=== PATIENT | female | born 1975 | race Caucasian/White ===

== ENCOUNTER 2022-12-17 13:18 | Outpatient (CLI) | payer MEDICAID, OTHER, SELFPAY | END 2022-12-17 13:19 | disposition home or self-care (01) | LOC: AMB 01-03 06:09 | PROVIDERS: Visit Provider Family Medicine | DX: R42 Dizziness and giddiness (principal) | CPT/HCPCS: A0998 ==

== ENCOUNTER 2022-12-19 19:33 | Day surgery (SDC) | payer MEDICAID, SELFPAY ==
[2022-12-19 19:42] VITALS: BP 141/84; PULSE 73; RESP 18; TEMP 36.9; O2SAT 97
--- NOTE | 2022-12-19 20:34 | ED_ITS ---
HPI - Female Genitourinary General Time Seen by Provider: 20:35 Date Seen: 12/19/22 Chief complaint: Vaginal Bleeding Stated complaint: Shortness of breath, Heavy vaginal bleeding Time Seen by Provider: 12/19/22 20:32 Source: patient, RN notes reviewed and old records reviewed Mode of arrival: ambulatory Limitations: no limitations History of Present Illness HPI Narrative: patient is a very pleasant 47-year-old female with history of IUD placement 14 years ago, otherwise healthy who comes to the emergency room for evaluation regarding low hemoglobin. Patient notes that for 9 months every time she gets her. It has become heavier and heavier and this particular time she is soaking a pad every hour. Patient states that normally her periods are 3-4 days but now they are exceeding 5 days. Today is day 4 of this particular month and she notes that she is experiencing clots and she has never noticed that before. Two days ago she had persistent bleeding while in the bathroom and when she got up she got lightheaded and fell to the floor and was short of breath. Her daughter called 911 but by the time they arrived she felt like she was back to normal and they said her blood pressure was okay. Today she went to urgent care and they said she needed to come to the emergency room because her hemoglobin was 6.0 and she would needed blood transfusion. Patient notes that she also felt like there was something in her vagina and felt that there was a bump and she is very worried about that like no dysuria no fever although she does occasionally feel hot. She is not short of breath today nor she experiencing any chest pain. We are conducting are examination with the assistance with souvenir and novelty maker Related Data Home Medications Medication Instructions Recorded Confirmed No Known Home Medications 12/19/22 12/19/22 Allergies Allergy/AdvReac Type Severity Reaction Status Date / Time No Known Drug Allergies Allergy Verified 12/19/22 19:42 Review of Systems Status of ROS: Reports: 10 or more systems reviewed and unremarkable except as noted in History and below Const: Denies: fever or chills Eyes: Denies: change in vision ENMT: Denies: neck pain or throat swelling Cardio: Reports: lightheadedness; Denies: chest pain, palpitations, swelling of feet/ankles or shortness of breath with exertion Resp: Denies: shortness of breath or cough GI: Denies: abdominal pain, nausea, vomiting or diarrhea : Reports: vaginal bleeding and change in menstrual flow; Denies: painful urination Musculo: Denies: neck pain Neuro: Denies: headache Psych: Reports: anxiety Allergy/Immuno: Denies: throat swelling [facility] Social History Smoking Status: Never smoker Do you use any of these nicotine containing products: None Second hand tobacco smoke exposure: No How often do you have a drink containing alcohol: never AUDIT-C Alcohol total score: 0 Non-prescribed substance use: denies use Exam Narrative: Exam Narrative: patient is alert and oriented. She is very tearful and scared. Eyes are clear. Examination of the conjunctiva as shows no pallor. Face is symmetrical. Speech is normal. Heart with regular rate and rhythm and lungs are clear. Abdomen soft nontender. Moving all extremities. External genitalia normal. Insertion of speculum shows small amount of clot and dark maroon blood in the vaginal vault. I do visualize the cervix but cannot identify normal anatomy. There appears to be soft tissue of the same color coming through the bottom of the vagina. Const: Vital Signs, click to edit/add: Vital Signs - 24 hr 12/19/22 19:42 Temperature 98.5 F Pulse Rate [Pulse Oximeter] 73 Respiratory Rate 18 Blood Pressure [Ri ght Upper Arm] 141/84 H Pulse Oximetry 97 Oxygen Delivery Me thod Room Air Documenting provider has reviewed patient's vital signs: yes Course Course Hospital Course: at this time differential diagnosis includes functional uterine bleeding, fibroids, mass, . Will place an IV, obtain type and cross, pelvic ultrasound, labs to include CBC, comprehensive, INR, hCG. Ultrasound is here at this time and thus will conduct my pelvic exam once patient returns. Reevaluation(s) Reevaluation #1: Patient noted to have a hemoglobin of 6.7. INR is normal. Fortunately ultrasound does show a uterine growth extending through the cervix. I did consult with Dr.Dohm Robledo OBGYN. At this time this growth is suspicious for cancer and I do conveyed this to the patient. Did explain that we will admit overnight with tissue sampling plan for tomorrow morning. Vital Signs Vital signs: Initial Vital Signs Temperature 98.5 F 12/19/22 19:42 Temperature Source Temporal Artery Scan 12/19/22 19:42 Pulse Rate 73 12/19/22 19:42 Pulse Rhythm Regular 12/19/22 19:42 Respiratory Rate 18 12/19/22 19:42 Blood Pressure 141/84 H 12/19/22 19:42 Blood Pressure Mean 103 12/19/22 19:42 Blood Pressure Position Sitting 12/19/22 19:42 Pulse Oximetry 97 12/19/22 19:42 Oxygen Delivery Method Room Air 12/19/22 19:42 Vital Signs Temperature 98.5 F 12/19/22 19:42 Pulse Rate 73 12/19/22 19:42 Respiratory Rate 18 12/19/22 19:42 Blood Pressure 141/84 H 12/19/22 19:42 Pulse Oximetry 97 12/19/22 19:42 Oxygen Delivery Method Room Air 12/19/22 19:42 Temperature 98.5 F 12/19/22 19:42 Pulse Rate 73 12/19/22 19:42 Respiratory Rate 18 12/19/22 19:42 Blood Pressure 141/84 H 12/19/22 19:42 Pulse Oximetry 97 12/19/22 19:42 Oxygen Delivery Method Room Air 12/19/22 19:42 MDM - Female Genitourinary MDM Narrative Medical decision making narrative: 1. Uterine mass with dysfunctional uterine bleeding-at this time patient will be admitted with nursing surgical services director consult by Dr. Lou tomorrow morning. Plan on OR tissue sampling for diagnosis. NPO after midnight. 2. Anemia with a hemoglobin of 6.7 -2 units blood to be transfused. Follow-up hemoglobin tomorrow morning. Provera 10 mg p.o. q.8 hours. 3. Disposition -admit under the care of Dr. Josselin Robledo. Dr. Lou to see tomorrow morning. Written orders for NPO status, Provera, hemoglobin in a.m. as well as transfusion done. Medical Records Attestation: I reviewed the patient's medical records. Lab Data Attestation: I reviewed the patient's lab results. Labs: Lab Results 12/19/22 12/19/22 12/19/22 Range/Units 21:15 21:57 23:25 WBC 8.47 (4.50-11.00) K/uL RBC 3.12 L (4.00-5.20) m/uL Hgb 6.7 L* (12.0-16.0) gm/dL Hct 22.8 L (33.0-51.0) % MCV 73 L (80-100) fL MCH 22 L (26-34) pg MCHC 29 L (32-36) gm/dL RDW Coeff of Aidee 17.4 H (11.5-15.5) % Plt Count 445 H (140-440) K/uL Neut % (Auto) 60.5 (42.0-72.0) % Lymph % (Auto) 28.8 (20-44) % [place] % (Auto) 7.4 (0.0-11.0) % Eos % (Auto) 2.6 (0.0-7.0) % Baso % (Auto) 0.6 (0.0-3.0) % Neut # (Auto) 5.12 (1.7-7.0) K/uL Lymph # (Auto) 2.44 (0.90-2.90) K/uL [place] # (Auto) 0.60 (0.00-0.90) K/UL Eos # (Auto) 0.22 (0.00-0.50) K/uL Baso # (Auto) 0.05 (0.00-0.30) K/uL Diff Slide Review Acceptable Review (Acceptable) INR 1.00 (0.91-1.10) Sodium 137 (135-149) mmol/L Potassium 3.6 (3.6-5.1) mmol/L Chloride 106 (96-114) mmol/L Carbon Dioxide 25 (20-32) mmol/L BUN 8 (5-24) mg/dL Creatinine 0.6 (0.5-1.5) mg/dL Estimated GFR 111 ml/min Glucose 110 (60-115) mg/dL Calcium 8.7 (8.4-10.6) mg/dL Total Bilirubin 0.2 (0.1-1.5) mg/dL AST 21 (12-35) U/L ALT 18 (4-35) U/L Alkaline Phosphatase 78 (40-150) U/L Total Protein 7.8 (6.0-8.3) g/dL Albumin 4.0 (3.3-5.0) g/dL HCG, Qual Negative (Negative) Urine Color Yellow (Yellow) Urine Appearance Clear (Clear) Urine pH 6.0 (5.0-8.5) Ur Specific [place] >= 1.030 (1.000-1.030) Urine Protein 3+ A (Negative) Urine Glucose (UA) Negative (Negative) Urine Ketones Negative (Negative) Urine Blood 2+ A (Negative) Urine Nitrite Negative (Negative) Urine Bilirubin Negative (Negative) Urine Urobilinogen 0.2 (0.2-1.0) Ur Leukocyte Esterase 1+ A (Negative) Urine RBC >100 A (0-2) Urine WBC 25-50 A (0-5) Ur Squamous Epith Cells None (None-Few) Urine Bacteria Moderate A (None) SARS-CoV-2 (PCR) Negative SARS-CoV-2 (Negative) Blood Type O Positive Antibody Screen NEGATIVE Crossmatch (AHG) See Detail Imaging Data pelvic ultrasound: Attestation: I have reviewed the pertinent imaging results. Radiologist's impression: Uterus: 9.0 x 4.7 x 4.6 cm. Normal echotexture of the myometrium. No masses.? Endometrium: Endometrial thickness measures 21 mm. There is a heterogeneous solid mass in the endometrial cavity which extends into the cervix measuring approximately 5.6 x 3.4 x 4.1 cm. Right ovary measures 2.9 x 1.0 x 1.7 cm and left ovary measures 2.7 x 1.5 x 2.4 cm. No ovarian or adnexal masses. Normal arterial and venous blood flow is demonstrated in both ovaries. Cul-de-sac: No significant free fluid.? ? IMPRESSION: Large heterogeneous solid mass in the endometrial cavity extending into the cervix. Recommend correlation with tissue sampling. Abdominal x-ray: Attestation: I have reviewed the pertinent imaging results. My impression: Y shaped IUD noted on x-ray. Radiologist's impression: Bowel: The bowel gas pattern is normal without evidence of bowel obstruction. Soft tissue: No evidence of pneumoperitoneum present. No suspicious calcifications noted. Surgical clips are noted in the right upper quadrant from prior cholecystectomy. An IUD is noted in the midline pelvis and may be oriented in the sagittal plane. Bone: Unremarkable for age. IMPRESSION: 1. An IUD is noted in the midline pelvis and may be oriented in the sagittal plane. Discharge Plan Discharge Clinical Impression: Vaginal bleeding, Mass of uterus Patient Disposition: Admitted As Inpatient Condition: Improved
--- NOTE | 2022-12-19 20:35 | CRLHL7_ITS ---
For Patients: As a result of the Century Cures Act, medical imaging exams and procedure reports are released immediately into your electronic medical record. You may view this report before your referring provider. If you have questions, please contact your health care provider. INDICATION: Vaginal bleeding. TECHNIQUE: Ultrasound pelvis transvaginal. Real-time sonographic images with spectral and color Doppler imaging of the ovaries were obtained. COMPARISON: None. FINDINGS: Uterus: 9.0 x 4.7 x 4.6 cm. Normal echotexture of the myometrium. No masses. Endometrium: Endometrial thickness measures 21 mm. There is a heterogeneous solid mass in the endometrial cavity which extends into the cervix measuring approximately 5.6 x 3.4 x 4.1 cm. Right ovary measures 2.9 x 1.0 x 1.7 cm and left ovary measures 2.7 x 1.5 x 2.4 cm. No ovarian or adnexal masses. Normal arterial and venous blood flow is demonstrated in both ovaries. Cul-de-sac: No significant free fluid. IMPRESSION: Large heterogeneous solid mass in the endometrial cavity extending into the cervix. Recommend correlation with tissue sampling. Dictated by Jhony Jorge MD @ 12/19/2022 10:00:17 PM (Electronically Signed)
[2022-12-19 21:39] LABS: Appearance Urine Clear (Clear); Bilirubin Urine Negative (Negative); Blood Urine 2+ (Negative); Glucose Urine Negative (Negative); Ketones Urine Negative (Negative); Leukocyte Esterase Urine 1+ (Negative); Nitrite Urine Negative (Negative); Protein Urine 3+ (Negative); Specific Gravity Urine >= 1.030 (1.000-1.030); Urobilinogen Urine 0.2 (0.2-1.0)
[2022-12-19 21:44] LABS: RBC Urine >100 (0-2); WBC Urine 25-50 (0-5)
[2022-12-19 21:45] LABS: Bacteria Urine Moderate
[2022-12-19 21:46] LABS: Color Urine Yellow (Yellow)
[2022-12-19 22:05] LABS: Basophils Absolute Auto 0.05 K/uL (0.00-0.30); Basophils Percent Auto 0.6 % (0.0-3.0); Eosinophils Absolute Auto 0.22 K/uL (0.00-0.50); Eosinophils Percent Auto 2.6 % (0.0-7.0); Hematocrit 22.8 % (33.0-51.0); Immature Granulocytes Abs Auto 0.01 K/uL (0.00-0.30); Immature Granulocytes Pct Auto 0.1 %; Lymphocytes Absolute Auto 2.44 K/uL (0.90-2.90); Lymphocytes Percent Auto 28.8 % (20-44); Mean Corpuscular HGB Conc 29 gm/dL (32-36); Mean Corpuscular Hemoglobin 22 pg (26-34); Mean Corpuscular Volume 73 fL (80-100); Monocytes Percent Auto 7.4 % (0.0-11.0); Neutrophils Absolute Auto 5.12 K/uL (1.7-7.0); Neutrophils Percent Auto 60.5 % (42.0-72.0); Platelet Count* 445 K/uL (140-440); RDW Coefficient of Variation % 17.4 % (11.5-15.5); Red Blood Count 3.12 m/uL (4.00-5.20); White Blood Count* 8.47 K/uL (4.50-11.00)
--- NOTE | 2022-12-19 22:15 | ED.NURSE ---
MD in room to perform pelvic examination. Griddle Attendant at bedside.
--- NOTE | 2022-12-19 22:17 | ED.NURSE ---
hgb 6.7 notifed
[2022-12-19 22:18] LABS: Hemoglobin* 6.7 gm/dL (12.0-16.0); Slide Review Reflex Yes
[2022-12-19 22:31] LABS: Chloride* 106 mmol/L (96-114); Potassium* 3.6 mmol/L (3.6-5.1); Sodium* 137 mmol/L (135-149)
[2022-12-19 22:33] LABS: Bilirubin Total* 0.2 mg/dL (0.1-1.5); Creatinine* 0.6 mg/dL (0.5-1.5); Estimated Glomerular Filt Rate 111 ml/min; Prothrombin Time 13.8 Seconds
[2022-12-19 22:34] LABS: Alanine Aminotransferase* 18 U/L (4-35); Alkaline Phosphatase* 78 U/L (40-150); Aspartate Amino Transferase* 21 U/L (12-35); Blood Urea Nitrogen* 8 mg/dL (5-24); Calcium* 8.7 mg/dL (8.4-10.6); Carbon Dioxide* 25 mmol/L (20-32); Glucose* 110 mg/dL (60-115); Total Protein* 7.8 g/dL (6.0-8.3)
[2022-12-19 22:55] LABS: HCG Qualitative Serum* Negative (Negative)
[2022-12-19 23:10] VITALS: BP 114/74; PULSE 81; RESP 14; O2SAT 99
--- NOTE | 2022-12-19 23:10 | CRLHL7_ITS ---
For Patients: As a result of the Century Cures Act, medical imaging exams and procedure reports are released immediately into your electronic medical record. You may view this report before your referring provider. If you have questions, please contact your health care provider. INDICATION: IUD placement, IUD check TECHNIQUE: Abdomen/Pelvis radiograph 2 views COMPARISON: None FINDINGS: Bowel: The bowel gas pattern is normal without evidence of bowel obstruction. Soft tissue: No evidence of pneumoperitoneum present. No suspicious calcifications noted. Surgical clips are noted in the right upper quadrant from prior cholecystectomy. An IUD is noted in the midline pelvis and may be oriented in the sagittal plane. Bone: Unremarkable for age. IMPRESSION: 1. An IUD is noted in the midline pelvis and may be oriented in the sagittal plane. Dictated by: Adin Soliman MD @ 12/19/2022 23:32:22 (Electronically Signed)
[2022-12-19] MEDS: MEDROXYPROGESTERONE 5 MG TABLET 10 MG PO (23:29)
[2022-12-20] VITALS (22 sets, daily range): BP systolic 97–126; BP diastolic 58–78; PULSE 51–77; RESP 16–18; TEMP 36.6–37.3; O2SAT 95–100; BMI 28.3
[2022-12-20 00:25] LABS: SARS PCR* Negative SARS-CoV-2 (Negative)
[2022-12-20 00:30] LABS: Slide Review Acceptable Review (Acceptable)
--- NOTE | 2022-12-20 01:13 | P.GYNHP_ITS ---
LEADER ASSEMBLER - H&P:HPI Medical History of Present Illness Time Seen by Provider: 00:30 Date Seen: 12/20/22 Reason for admission: vaginal bleeding Narrative: HPI: Rosette Zimmerman is a 47 year old who presented to the emergency department on 12/19/2022 with a 4 day history of extremely heavy vaginal bleeding with saturating a maxi pad in less than an hour, passing large clots tissue-like globs. The patient is a Nepali speaker and entire visit done with an on-line equipment operat0r. She is here with her spouse, Naman and daughters: Angélica and Roopa. They also have a son, Naman Yang, who is in his Freshman year at [employer]. Rosette states that her cycles prior to about 9 months ago were regular, occurred on a monthly basis, lasted 3 days and were moderately heavy. In the last 9 months her cycles continue to be monthly but are much heavier and last 5 days. She has heavy bleeding for all 5 of those days. She notes extreme fatigue and dizziness when she has her cycle. She notes that she has had no energy the last several months. She had an episode syncope on Friday12/17/2022 and her daughter called 911. The paramedics went to her home and stayed with her for a little while and decided not to transport her to the hospital because by the time they arrived she was feeling much better. She states that since Friday she has not done anything except lay on her couch because she is too fatigued to do anything and afraid that she would faint again. Her bleeding continues to be very heavy so she came in to the emergency department today. She denies chest pain she states that she did feel short of breath last night when she woke from sleep and was worried she was going to faint again which sounds like she was anxious. The patient also states that she had a ParaGard IUD placed about 14 years ago and has not had it removed. The patient is healthy but states that she does not see a doctor regularly because she and her do not have insurance and do not have extra money in order to afford health care. A high school social studies teacher consultation was requested to help them find coverage/support for payment. On arrival her blood pressure, pulse, temperature O2 saturation were all normal. Her hemoglobin was very low at 6.7 and had low low MCV consistent with an iron deficiency anemia due to chronic blood loss. Her comprehensive metabolic panel was normal. COVID test was negative. A pelvic ultrasound was performed and findings were reviewed with the patient and her family: The uterus measures 9.0 x 4.7 x 4.6 cm. Normal echotexture of the myometrium no masses. They endometrium is thickened measuring 21 mm. There is a heterogenous, solid mass within the endometrial cavity which extends into the cervix measuring 5.6 x 3.4 x 4.1 cm. Right ovary: 2.9 x 1.0 x 1.7 cm, left ovary 2.7 x 1.5 x 2.4 cm. No evidence of ovarian or adnexal masses/cysts. Normal arterial and venous blood flow in both ovaries. Cul-de-sac: Significant free fluid. The IUD was difficult to visualize on the ultrasound so an abdominal x-ray was performed which showed the IUD within the uterus but malpositioned likely due to mass effect of the lesion in the endometrium. I reviewed with the family that the mass is concerning for either a fibroid or malignancy (leiomyosarcoma). I reviewed recommendation for exam under anesthesia in the operating room under conscious sedation, possible D&C, possible biopsy of the mass, possible removal of the mass. Briefly reviewed possible need for hysterectomy to control bleeding. All of their questions answered. Her procedure will be performed and care soon by Dr. Alexa Agudelo at 7am. Meds Home Medications and Allergies Home Medications Medication Instructions Recorded Confirmed Type No Known Home Medications 12/19/22 12/19/22 History Allergies Allergy/AdvReac Type Severity Reaction Status Date / Time No Known Drug Allergies Allergy Verified 12/19/22 19:42 [facility] Active Problems (Updated 12/20/22 @ 01:32 by Josselin Knox MD) History of transfusion of packed RBC (Acute) On 12/20/2022 ?Z92.89 - Personal history of other medical treatment (ICD-10) Anemia due to acute blood loss (Acute) ?D62 - Acute posthemorrhagic anemia (ICD-10) Malpositioned IUD (Acute) Within in the endometrium, mobilized by the uterine mass. Paraguard placed in 2008. ?T83.32XA - Displacement of intrauterine contraceptive device, initial encounter (ICD-10) Vaginal bleeding (Acute) ?N93.9 - Abnormal uterine and vaginal bleeding, unspecified (ICD-10) Mass of uterus (Acute) ?N85.8 - Other specified noninflammatory disorders of uterus (ICD-10) Surgical History (Updated 12/20/22 @ 01:32 by Josselin Knox MD) History of cholecystectomy ?Z90.49 - Acquired absence of other specified parts of digestive tract (ICD-10) Social History (Updated 12/20/22 @ 01:34 by Josselin Knox MD) Narrative: Cis-gender, heterosexual woman. Relationship status: . Spouse/Partner: Naman Education: Not recorded Occupation: [id number] mom Tobacco: Never smoker E-cigarettes: No Alcohol: No Illicit/recreational drugs: No Safety concerns at home or work: No Dietary restriction(s): No Exercise: No Has 3 children: Angélica (F)age 21, Naman Clarke 19. Roopa (F) 17. Smoking Status: Never smoker Do you use any of these nicotine containing products: None Second hand tobacco smoke exposure: No How often do you have a drink containing alcohol: never AUDIT-C Alcohol total score: 0 Non-prescribed substance use: denies use LEADER ASSEMBLER - Exam Physical Exam: Vital signs: Temp Pulse Resp BP Pulse Ox O2 Del Method 98.5 F 81 14 114/74 99 Room Air 12/19/22 19:42 12/19/22 23:10 12/19/22 23:10 12/19/22 23:10 12/19/22 23:10 12/19/22 23:10 Narrative: General: Pleasant, , well groomed woman in no acute distress. Vital signs: Per electronic medical record Psychiatric: Tearful because she is worried about possibility of malignancy. Appropriate. Normal eye contact and speech pattern. Heart: Regular rate and rhythm without gallop, rub or murmur. Chest: Clear to auscultation bilaterally. Abdomen: Soft, nontender, mildly distended. No CVA or flank tenderness. Pelvic: Deferred to the operating room. Extremities: No pain or edema LEADER ASSEMBLER - Results Labs Labs: Short CBC 12/19/22 Range/Units 21:57 WBC 8.47 (4.50-11.00) K/uL Hgb 6.7 L* (12.0-16.0) gm/dL Hct 22.8 L (33.0-51.0) % Plt Count 445 H (140-440) K/uL BMP 12/19/22 21:57 Sodium 137 Potassium 3.6 Chloride 106 Carbon Dioxide 25 BUN 8 Creatinine 0.6 Glucose 110 Calcium 8.7 Liver Function 12/19/22 Range/Units 21:57 Total Bilirubin 0.2 (0.1-1.5) mg/dL AST 21 (12-35) U/L ALT 18 (4-35) U/L Alkaline Phosphatase 78 (40-150) U/L Albumin 4.0 (3.3-5.0) g/dL Urine 12/19/22 Range/Units 21:15 Urine Color Yellow (Yellow) Urine Appearance Clear (Clear) Urine pH 6.0 (5.0-8.5) Ur Specific [place] >= 1.030 (1.000-1.030) Urine Protein 3+ A (Negative) Urine Glucose (UA) Negative (Negative) Assessment and Plan Assessment and plan (1) Vaginal bleeding: Status: Acute (2) Mass of uterus: Status: Acute Plan 1. Admit to observation 2. Transfuse 2 units packed red blood cells 3. IV Fluid: Lactated Ringer's 125 mL/hour 4. Patient declines pain medication. 5. Activity: As tolerated 6. To prevent heavy bleeding: Provera 10 mg p.o. t.i.d. 7. NPO after midnight 8. Scheduled exam under anesthesia, possible dilation and curettage, possible uterine mass biopsy, possible uterine mass removal. 9. Dr. Alexa Agudelo to assume care at 7am and will be the surgeon.
[2022-12-20] MEDS: ACETAMINOPHEN 500 MG TABLET 1000 MG PO (03:49)
[2022-12-20] MEDS: diphenhydrAMINE 25 MG CAPSULE PO (03:50)
--- NOTE | 2022-12-20 08:07 | PC.NURSE ---
?END OF SHIFT NOTE: PRIMARILY IRISH SPEAKING PT. ARRIVED TO THE FLOOR AT 0118, TO ROOM #283. ADMISSION COMPLETED WITH USE OF IPAD RANCH RIDER. PT A&O x4. PLEASANT AND COOPERATIVE WITH CARES. PT DENIES CP, SOB, N/V. AMBULATES WITHIN ROOM INDEPENDENTLY. VSS ON RA; AFEBRILE. CALL LIGHT WITHIN PT?S REACH. PT RECEIVED 1 UNIT OF BLOOD WITH NO ADVERSE REACTIONS. SECOND UNIT OF BLOOD STARTED AT 0630. PT?S - CARLA STAYED NIGHT AT PT?S BEDSIDE. LSCTA. NPO PRIOR TO ARRIVING TO M/S FLOOR @0118. PLAN TO GO TO OR @1130.?
[2022-12-20 09:31] LABS: Basophils Absolute Auto 0.04 K/uL (0.00-0.30); Basophils Percent Auto 0.5 % (0.0-3.0); Eosinophils Absolute Auto 0.28 K/uL (0.00-0.50); Eosinophils Percent Auto 3.6 % (0.0-7.0); Hematocrit 30.8 % (33.0-51.0); Hemoglobin* 9.7 gm/dL (12.0-16.0); Immature Granulocytes Abs Auto 0.06 K/uL (0.00-0.30); Immature Granulocytes Pct Auto 0.8 %; Lymphocytes Absolute Auto 2.34 K/uL (0.90-2.90); Lymphocytes Percent Auto 30.4 % (20-44); Mean Corpuscular HGB Conc 32 gm/dL (32-36); Mean Corpuscular Hemoglobin 24 pg (26-34); Mean Corpuscular Volume 76 fL (80-100); Monocytes Percent Auto 8.9 % (0.0-11.0); Neutrophils Percent Auto 55.8 % (42.0-72.0); Platelet Count* 399 K/uL (140-440); RDW Coefficient of Variation % 17.9 % (11.5-15.5); Red Blood Count 4.06 m/uL (4.00-5.20); White Blood Count* 7.71 K/uL (4.50-11.00)
[2022-12-20 09:34] LABS: Slide Review Reflex No
--- NOTE | 2022-12-20 10:06 | W.ANESCHARGE ---
Anesthesia Charges Start Date/Time Anesthesia Start Date: 12/20/22 Anesthesia Start Time: 11:38 Stop Date/Time Anesthesia Stop Date: 12/20/22 Anesthesia Stop Time: 12:35
[2022-12-20] MEDS: MEDROXYPROGESTERONE 5 MG TABLET 10 MG PO (10:09)
[2022-12-20] MEDS: CEFAZOLIN 2 GM INJ IVP (10:09)
[2022-12-20] MEDS: LACTATED RINGERS 1000 ML 1,000 ML 125 ML IV (10:10)
[2022-12-20] MEDS: LACTATED RINGERS 1000 ML 1,000 ML 100 ML IV (11:38)
--- NOTE | 2022-12-20 12:12 | W.ANESCHARGE ---
Anesthesia Charges Start Date/Time Anesthesia Start Date: 12/20/22 Anesthesia Start Time: 11:38 Stop Date/Time Anesthesia Stop Date: 12/20/22 Anesthesia Stop Time: 12:35
--- NOTE | 2022-12-20 12:13 | PC.NURSE ---
Blood infused without difficulty this morning, pt's VS remained WNL. Dr. Marrufo in to discuss surgical procedure this morning pre-operatively. Emergency Department Technician utilized PRN. Pt reported small amount of vaginal bleeding, arjun pads provided. Pt sent to OR at 1145. PACU staff returned bed to M/S and informed property underwriter and Charge nurse that patient will recover and discharge through Same Day Surgery.
[2022-12-20] MEDS: BUPIVACAINE 0.5% 30 ML INJECTION (12:20)
[2022-12-20] MEDS: KETOROLAC 30 MG/ML inj IVP (12:56)
--- NOTE | 2022-12-20 13:05 | P.GYNPRC_ITS ---
Procedure Note Date Seen: 12/20/22 Procedure Details: Preop diagnosis: Abnormal uterine bleeding, uterine mass, symptomatic anemia s/p 2 units PRBCs Postop diagnosis: Abnormal uterine bleeding, abortive myoma, symptomatic anemia, s/p 2 units PRBCs Name of procedure: Pelvic exam under anesthesia, Pap Smear performance, Myomectomy,Removal of Paragard IUD, Hysteroscopy, Insertion of Mirena IUD Surgeon: Bhupendra Agudelo Long Lines Operator: None Complications: None EBL: 50mL Drains: None Findings: Bimanual exam: Anteverted uterus of about 9cm, regular contour, no adnexal masses. Speculum exam: Large rounded pink/miles colored mass protruding through the cervix of about 4x3cm. External cervical os dilated to about 4-5cm. Paragard IUD in vagina/posterior fornix. Intrauterine cavity: Bilateral cornual openings seen, thickened endometrium, no additional lesions identified. Patient was taken to the OR were MAC anesthesia was administered without difficulty. She was placed in the dorsal lithotomy position with Thomas type stirrups. An exam under anesthesia as described above. Pap Smear collected in an unsterile manner. Patient was then prepared and draped in the normal sterile fashion. In and out catheter utilized to drain bladder. About 50mL of clear urine collected. A bivalved speculum was inserted in the posterior aspect of the vagina. The protruding mass from the cervix was grasped with 2 tenaculums and with gentle clockwise rotation and traction it was removed. This measured about 4x3cm. IUD strings were immediately visualized at the posterior vaginal fornix. Paragard IUD was at the vagina. Bright red bleeding seen from uterus in a mild to moderate amount. 0.5% Marcaine was injected at 2 and 11 o'clock a total of about 5mL utilized. A ring forceps was used to grasp the anterior lip of the cervix. The uterus was carefully sounded to 9 cm. The external cervical os was then grasped at the posterior lip with ring and tenaculum forceps to close the cervix in an attempt at hysteroscopy. A 5 mm 30 degree TruClear hysteroscope was introduced under direct visualization, and the uterus was distended with normal saline. Findings as above. I was able to visualize the cavity but was unable to maintain distension to complete curettings and decision was made to remove hysteroscope. Hysteroscope removed under direct visualization. Sharp curettings performed until a gritty sensation obtained in all intrauterine cabrera. Mirena IUD was placed without difficulty, strings were cut and left about 3 -4 cm long. Tenaculum and ring forceps were removed from the cervix and good hemostasis was noted at puncture sites after application of pressure and silver nitrate. Patient tolerated the procedure well. Instrument and sponge counts were correct x2. The patient was awakened from MAC anesthesia and taken to the recovery room in a stable condition. The patient will go home after recovering from anesthesia and meeting all the criteria for discharge. She was given instruction regarding follow-up visit in 2 weeks at [facility] and instructions for pain medication. Fluid deficit: 100mL
--- NOTE | 2022-12-20 13:07 | SUR.PHASEII ---
Lab here for HGB draw
[2022-12-20 13:20] LABS: Hemoglobin* 9.9 gm/dL (12.0-16.0)
--- NOTE | 2022-12-20 13:25 | SUR.PHASEII ---
HGB 9.9
--- NOTE | 2022-12-20 15:45 | SUR.PHASEII ---
Upon discharge, verbalized (through hull molder) that they are ready to go and understand discharge instructions. Pt tolerated saltine crackers, drank 2 glasses of water, and voided. Pt denied pain and nausea upon discharge.
== END 2022-12-20 15:51 | disposition home or self-care (01) ==
LOC: ED 23:54 → MEDSURG 12-20 03:03 → SS 12-20 11:36 → MEDSURG 12-20 11:36
PROVIDERS: Obstetrics & Gynecology; Emergency Provider Family Medicine; Visit Provider Obstetrics & Gynecology
PROC: 0UDB8ZZ Extraction of Endometrium, Via Natural or Artificial Opening Endoscopic (ICD-10-PCS; CPT 58558; principal; 2022-12-20 11:15)
DX: N92.0 Excessive and frequent menstruation with regular cycle (principal); N93.8 Other specified abnormal uterine and vaginal bleeding; D26.0 Other benign neoplasm of cervix uteri; T83.32XA Displacement of intrauterine contraceptive device, initial encounter; Z30.433 Encounter for removal and reinsertion of intrauterine contraceptive device; R06.02 Shortness of breath; D62 Acute posthemorrhagic anemia
CPT/HCPCS: 58145; 58120; 58300; 58301; 00952; 36415; 36430; 74018; 76830; 80053; 81001; 84703; 85018; 85025; 85610; 86850; 86900; 86901; 86922; 87086; 87635; 88305; 88307; 99284; 99285; T1013; A9270; J0690; J1885; J2250; J2704; J3010; J3490; J7120; J7298; P9016